=== PATIENT | female | born 1970 | race Caucasian/White ===

== ENCOUNTER 2016-03-18 09:49 | Day surgery (SDC) | payer OTHER ==
[2016-03-18] VITALS (10 sets, daily range): BP systolic 116–182; BP diastolic 85–104; PULSE 91–99; RESP 13–17; O2SAT 94–99
[~2016-03-18] VITALS: Ht 162.6 cm; Wt 83.1 kg
[~2016-03-18 09:49] MED LIST: ALBU8.5H2 INHALATION; BUTO10SP NS; CeFAZolin Inj 2 GM in IV Premix 1 EACH IV ONE; HYDR2TAB27 PO; OMEP20TA86 PO; PRAZ5CAP3 PO; SERT100T9 PO; TAMS0.4C98 PO; ZLP10T PO; sumatriptan
[2016-03-18] MEDS ORDERED: Ketamine 10 mg/mL 20 mL Inj ONE (09:50)
[2016-03-18] MEDS ORDERED: fentaNYL-PF 50 mCg/mL 2 mL Inj ONE (09:50)
[2016-03-18] MEDS ORDERED: Lidocaine PF 1% 30 mL Inj ONE (09:50)
[2016-03-18] MEDS ORDERED: Propofol 10,000 mCg/mL 20 mL Inj ONE (09:50)
[2016-03-18] MEDS ORDERED: Ondansetron 2 mg/mL 2 mL Inj ONE (09:50)
[2016-03-18] MEDS ORDERED: Dexamethasone 4 mg/mL Inj ONE (09:50)
[2016-03-18] MEDS: Lactated Ringer's 1,000 ML IV SCH ×2 (09:56→11:37)
[2016-03-18] MEDS ORDERED: SUMA100T2 PO (10:16)
[2016-03-18] MEDS ORDERED: GABA600T2 PO ×2 (10:16)
[2016-03-18] MEDS ORDERED: CLON0.2T PO (10:16)
[2016-03-18] MEDS ORDERED: Lactated Ringer's 1,000 ML IV SCH (12:01)
[2016-03-18] MEDS ORDERED: Lactated Ringer's 500 ML IV PRN (12:01)
--- NOTE | 2016-03-18 12:01 | PCM.HPANE ---
Patient Data Date of Service: Mar 18, 2016 Surgeon Admitting Provider: Attending Provider:Jacqueline Little MD Primary Care Physician:Homero Reich MD Other Provider:Sandra Campuzano Anesthesia Reason for Visit Left Kidney & Ureteral Stones Ht/WT & BMI Height (Feet): 5 Height (Inches): 4 Weight (Kilograms): 83.1 Body Mass Index 31.00 Allergies Coded Allergies: latex (Verified Allergy, Unknown, 03/16/16) Past Anesthesia History Anesthesia History: Denies:: Anesthesia Reactions Diabetes History Hx Diabetes?: No Medications Home Meds Incl Beta Dev: No Reported Medications Gabapentin 600 Mg Tablet1,200 Mg PO HS Ref 0 03/18/16 Gabapentin 600 Mg [id number] Mg PO AM #105 03/18/16 Clonidine 0.2 Mg Tablet0.2 Mg PO QID #90 03/18/16 Sumatriptan Succinate 100 Mg [id number] Mg PO PRN #2 03/18/16 Tamsulosin (Flomax)0.4 Mg Capsule0.4 Mg PO DAILY Ref 0 03/16/16 Sertraline HCl (Sertraline)100 Mg [id number] Mg PO DAILY 30 Days Ref 0 03/16/16 Albuterol HFA (Proair HFA)8.5 Gm Hfa.aer.ad2 Puffs INHALATION Q4H PRN For Shortness of Breath #1 INHALER 03/16/16 Prazosin 5 Mg Capsule5 Mg PO HS 03/16/16 Omeprazole 20 Mg Tablet.dr20 Mg PO DAILY 03/16/16 Hydromorphone (Dilaudid)2 Mg Tablet2 Mg PO Q4H PRN Pain 03/16/16 Butorphanol Tartrate 10 Mg/1 Ml Spray10 Mg NS PRN migraines 03/16/16 Zolpidem (Ambien)10 Mg Repsrm15 Mg PO HS PRN For Insomnia Ref 0 03/16/16 Discontinued Reported Medications [sumatriptan] No Conflict CheckUnknown Dose PRN migraines 03/16/16 History History of ENT Problems?: No Hx of Heart Problems?: No Cardiovascular History: Denies:: Congestive Heart Failure Hypertension Hx of Respiratory Problem?: Yes Respiratory History: Positive for:: Asthma Use of Inhalers / NEBS (pro ir) Denies:: Tuberculosis Other History/Comment stable/Pt and CTA x4 Hx Neurologic Problems?: Yes Neurological History: Positive for:: Headaches Hx of GI Problems?: Yes Gastrointestinal History: Positive for:: Gastroesphageal Reflux Hx of Problems?: Yes Genitourinary History: Positive for:: Kidney Stones (left stone current admission problem) Female Hx: Denies:: Currently (NEG TEST) Hx Musculoskeletal Problems?: No Hx of Psycho/Social Problems?: Yes Psycho Social History: Positive for:: Anxiety (PTSD) Bipolar Disorder Hx Depression Hx Surgeries?: Yes Other History/Comment No prior anesthetic concerns or untoward reactions Hx Any Other Health Problems?: Yes Other History: Denies:: Cancer Hx Diabetes: No Hx Alcohol Use: NoHx Substance Use: No Smoking Status: Never Smoker Have You Smoked inLast 12 mo: No Stop/Bang Treated for Sleep Apnea?: No Do You Have a CPAP Machine?: No S-Snoring: Do You Snore Loudly: No T-Tired: feel tired, fatigued: No O-Obsered: Observed not breath: No P-Blood Pressure: treated: No B- Body Mass Index > 35 kg/m2: No A- Age over 50: No N- Neck Large Circumference: No G- Gender Male: No FRANCES Risk Assessment: Low Risk, <3 Yes FRANCES Category 1: Yes Risk Assessment Category Category 1A: Patient has history of documented sleep apnea, and HAS NOT received any narcotic, sedative or anesthesia administration during this stay. Category 1B: Patient has history of documented sleep apnea, and HAS received any narcotic , sedative or anesthesia administration during this stay Category 2: Patient has SUSPECTED Obstructive Sleep Apnea, and HAS received any narcotic , sedative or anesthesia administration during this stay. Category 3: Patient has SUSPECTED Obstructive Sleep Apnea and HAS NOT received narcotic, sedative or anesthesia administration during this stay. Category 4: Outpatient in Procedural Areas with known sleep apnea or who screen positive for High Risk via the STOP/BANG questionnaire. Exam Exam Vital Signs Vital Signs Date Time Temp Pulse Resp B/P Pulse Ox O2 Delivery O2 Flow Rate FiO2 03/18/16 10:11 150/103 03/18/16 10:09 36.5 91 16 182/104 99 Room Air General Appearance: Alert, Oriented X3, Cooperative, No Acute Distress HEENT/AIRWAY: MP 2 Lungs: Clear to Auscultation Heart: Exam Unremarkable, Normal S1, Normal S2 Meds/Labs/Diagnostics Admission Meds Current Medications Lactated Ringer's (Lr) 1,000 ml @ 120 mls/hr Q8H20M IV Last administered on t 09:56; Start 03/18/16 at 05:00; Stop 03/18/16 at 13:19 Plan Impression Patient chart reviewed, patient interviewed and anesthestic plan with risks, benefits, and alternatives discussed, and informed consent obtained. NPO Status: 03/17/[id number] ASA Physical Status: ASA2 Mod Systemic Disease Anesthetic Plan: GA Bene/Risks/Altern/Consents: Yes HP Complete Prior to Induction: Yes (LMA) Byron Ortiz DO Mar 18, 2016 12:01
[2016-03-18] MEDS ORDERED: Belladonna Alk-Opium 60 mg Rectal Suppository RECTAL ONE (12:02)
[2016-03-18] MEDS ORDERED: HYDROmorphone 1 mg/mL Inj IVPUSH PRN (12:05)
[2016-03-18] MEDS ORDERED: EPHEDrine Sulfate 50 mg/mL Inj IVPUSH PRN (12:05)
[2016-03-18] MEDS ORDERED: Phenylephrine 10,000 mCg/mL Inj IVPUSH PRN (12:05)
[2016-03-18] MEDS ORDERED: Ondansetron 2 mg/mL 2 mL Inj IVPUSH PRN (12:05)
[2016-03-18] MEDS ORDERED: Dexamethasone 4 mg/mL Inj IVPUSH PRN (12:05)
[2016-03-18] MEDS ORDERED: Atropine 0.4 mg/mL Inj IVPUSH PRN (12:05)
[2016-03-18] MEDS ORDERED: MetoCLOpramide 5 mg/mL 2 mL Inj IVPUSH PRN (12:05)
[2016-03-18] MEDS ORDERED: Labetalol 5 mg/mL 4 mL Inj IV PRN (12:05)
[2016-03-18] MEDS ORDERED: oxyCODONE-Acetamin 5-325 mg Tablet PO PRN (12:35)
--- NOTE | 2016-03-18 12:45 | PCM.ANEP1 ---
Post Anesthesia Phase 1 PACU Phase 1 Assessment Date of Service: Mar 18, 2016 Vital Signs Vital Signs Date Time Temp Pulse Resp B/P Pulse Ox O2 Delivery O2 Flow Rate FiO2 03/18/16 10:11 150/103 03/18/16 10:09 36.5 91 16 182/104 99 Room Air Level of Alertness: Awake, talking CASTAÑEDA's with Equal Strength: Yes Pain: No Nausea or Vomiting: Yes Oxygen Delivery: Simple Mask Lungs: Clear to Auscultation Dermatome Level: Full Sensation (Rx for nausea discussed with RN who will treat PRN.) Byron Ortiz DO Mar 18, 2016 12:45
[2016-03-18] MEDS: fentaNYL-PF 50 mCg/mL 2 mL Inj IVPUSH PRN ×2 (12:55→13:01)
--- NOTE | 2016-03-18 13:00 | PCM.ANEP2 ---
Post Anesthesia Evaluation ASA/CMS Post Anesthesia Date of Service: Mar 18, 2016 VS in Patient's Normal Range?: Yes Resp Stable; Airway Patent?: Yes CV Function & Hydration Stable: Yes Mental Status Recovered?: Yes Pain control Satisfactory?: Yes N/V Control Satisfactory?: Yes Byron Ortiz DO Mar 18, 2016 13:00
--- NOTE | 2016-03-18 13:25 | OP ---
[address] [id number] OPERATIVE REPORT PATIENT: ELI CASTAÑEDA : 1970 MR#: [id number] ADMIT: 03/18/2016 JOB ID: [id number] DATE OF SURGERY: 03/18/2016 SURGEON: Jacqueline Little MD PREOPERATIVE DIAGNOSIS(ES): Left ureteral calculus. POSTOPERATIVE DIAGNOSIS(ES): Left ureteral calculus. PROCEDURE: Cystoscopy, ureteroscopy, stone basketing, and insertion of stent. ANESTHESIA: General anesthetic, Dr. Ortiz. DESCRIPTION OF PROCEDURE: Under general anesthetic, the patient was placed in the lithotomy position and the genitalia prepped and draped in a sterile manner. A 22-Setswana cystoscope was introduced through a normal urethra. Ureteral orifices were normal in position and appearance. A 0.035 Glidewire was advanced to the level of the left renal pelvis. Over this, a balloon dilation catheter was used to dilate the distal ureter. A 7-Setswana semirigid ureteroscope was then advanced alongside the wire. It was apparent that the stone had been pushed up, at least farther than the middle of the ureter. A flexible ureteroscope was then passed over the Glidewire up to the renal pelvis. All calyces were inspected and the stone was found in the lower pole calyx. It was engaged with an NGage basket and withdrawn. A 6-Setswana 22 cm stent was then inserted over a wire. When it was confirmed to be in good position fluoroscopically, the wire was withdrawn. A B and O suppository was given for postoperative analgesia. The patient tolerated the procedure well and left the operating room in good condition.
[2016-03-25 09:09] LABS: Stone Color Tan (.)
== END 2016-03-18 23:59 | disposition home or self-care (01) ==
LOC: SAS 09:49
PROVIDERS: ATTEND Urology
DX: N20.2 Calculus of kidney with calculus of ureter (principal); J45.909 Unspecified asthma, uncomplicated
CPT/HCPCS: 52332; 52352; 76000; 82360; C2617; J0690; J1200; J2175; J2250; J3010; J7120